=== PATIENT | male | born 1980 | race Caucasian/White ===

== ENCOUNTER 2023-01-20 22:59 | Emergency (ER) | payer BC, SELFPAY ==
[2023-01-20 23:11] VITALS: BP 137/100; PULSE 78; RESP 18; TEMP 36.7; O2SAT 99; BMI 25.1
[2023-01-20 23:45] VITALS: RESP 16; O2SAT 99
[2023-01-21] MEDS: BUPIVACAINE 0.25% 30 ML 5 ML INJECTION (00:20)
--- NOTE | 2023-01-21 00:48 | ED_ITS ---
HPI - General Adult General Chief complaint: Unspecified Complaint, Adult Stated complaint: has some hemorrhoids that flared up Time Seen by Provider: 01/20/23 23:10 History of Present Illness HPI narrative: 42-year-old man presenting to the emergency department with complaint of persist ent anal area pain that began after supper this evening after a bowel movement. Has not been able to get it settle down with Sitz bath, lidocaine containing preparation Hdelilah. He received these treatments after being sent in clinic a week ago for what apparently were some thrombosed hemorrhoids that began about 2 weeks ago. He was referred to Colorectal surgery and has that appointment in about a week. At this point is relatively desperate for some pain relief. He does admit feeling a large swelling in the area that was not there prior to this latest bowel movement. Related Data Previous Rx's Medication Instructions Recorded hydrocortisone acetate 25 mg 25 mg LA QHS #12 ea 01/06/23 rectal suppository (Anusol-HC) Allergies Allergy/AdvReac Type Severity Reaction Status Date / Time No Known Drug Allergies Allergy Verified 01/20/23 23:14 Review of Systems Status of ROS: Reports: 6 or more systems reviewed and unremarkable except as noted in History and below [facility] Medical History History of hemorrhoids ?Z87.19 - Personal history of other diseases of the digestive system (ICD-10) Surgical History (Updated 01/21/23 @ 00:58 by Bryson Alfred RN) History of oral surgery ?Z98.890 - Other specified postprocedural states (ICD-10) Social History Smoking Status: Never smoker Second hand tobacco smoke exposure: No Non-prescribed substance use: denies use Exam Narrative: Exam Narrative: Pleasant. Well built. NAD. Skin is warm and dry. Breathing easily. Clearly uncomfortable with transitions. Examination of the anal area involving the majority of the left side anal tissue is swelling little more than 2 cm x 1-1/2. Does contain some purple areas within consistent with thrombosed hemorrhoid. Exquisitely tender to palpation. At about 5 o'clock position is no other older thrombosed not inflamed tissue with some deeper more subtle hemorrhoidal tissue along the right side as well. Const: Vital Signs, click to edit/add: Vital Signs - 24 hr 01/20/23 23:11 01/20/23 23:45 01/21/23 00:58 Temperature 98.0 F 98.4 F Pulse Rate [Right Pulse Oximeter] 78 74 Respiratory Rate 18 18 Respiratory Rate [ Rectum] 16 Blood Pressure [Le ft Upper Arm] 137/100 H 122/74 Pulse Oximetry 99 99 Oxygen Delivery Me thod Room Air Room Air 01/21/23 00:50 Temperature 98.4 F Pulse Rate [Right Pulse Oximeter] 74 Respiratory Rate 18 Respiratory Rate [ Rectum] Blood Pressure [Le ft Upper Arm] 122/74 Pulse Oximetry Oxygen Delivery Me thod Course Vital Signs Vital signs: Initial Vital Signs Temperature 98.0 F 01/20/23 23:11 Temperature Source Temporal Artery Scan 01/20/23 23:11 Pulse Rate 78 01/20/23 23:11 Respiratory Rate 18 01/20/23 23:11 Blood Pressure 137/100 H 01/20/23 23:11 Blood Pressure Mean 112 H 01/20/23 23:11 Blood Pressure Position Sitting 01/20/23 23:11 Pulse Oximetry 99 01/20/23 23:11 Oxygen Delivery Method Room Air 01/20/23 23:11 Vital Signs Temperature 98.0 F 01/20/23 23:11 Pulse Rate 78 01/20/23 23:11 Respiratory Rate 18 01/20/23 23:11 Blood Pressure 137/100 H 01/20/23 23:11 Pulse Oximetry 99 01/20/23 23:11 Oxygen Delivery Method Room Air 01/20/23 23:11 Temperature 98.4 F 01/21/23 00:58 Pulse Rate 74 01/21/23 00:58 Respiratory Rate 18 01/21/23 00:58 Blood Pressure 122/74 01/21/23 00:58 Pulse Oximetry 99 01/21/23 00:58 Oxygen Delivery Method Room Air 01/21/23 00:58 Medical Decision Making MDM Narrative Medical decision making narrative: I discussed options with Mr. Schofield. He is reluctant to take opiates as they have rather constipated him in the past. He has felt improved in the past with excision of hemorrhoid and would like to proceed with that. I anesthetize in fan the left side anal area with lidocaine with epinephrine. Followed later with Marcaine. Ultimately do achieve very good anesthesia. After initially attempting excision myself in 3 locations over most purpled and apparently thrombosed tissue assisted further with Nursing and particularly ce ntrally in this most thrombosed area on the left am able to excise a number of 0.5 cm clots. Tissue in general is less swollen and retreats more into the anal tissue. 4 x 4 gauze is placed. See patient discharge plan Discharge Plan Discharge Clinical Impression: External hemorrhoid, thrombosed Patient Disposition: Home, Self-Care Condition: Improved Additional Instructions: Continue with daily to twice daily Sitz baths over the next few days. Do your best to keep stool soft with lots of hydration fiber intake. Maybe supplementing with MiraLax equivalent. Consider getting a bidet for cleaning. They are quite affordable now and you can just replace the lid of your toilet. Can continue with lidocaine creams, witch Nancy various formulations, and over this next week at least steroid cream as well. Presumably the steroid/hydrocortisone is combined with some lidocaine. Can take up to 800 mg of ibuprofen per dose or up to 1000 mg of acetaminophen per dose. Alternative to the ibuprofen might be up to 500 mg naproxen 2 times daily. Follow-up next week with colorectal as planned. Prescriptions: No Action hydrocortisone acetate [Anusol-HC] 25 mg suppository 25 mg LA QHS Qty: 12 0RF Follow Up/Referrals: Provider,Not a Local [Primary Care Provider] - Stand Alone Forms: LEP[facility] Info Instructions
[2023-01-21 00:50] VITALS: BP 122/74; PULSE 74; RESP 18; TEMP 36.9
[2023-01-21 00:58] VITALS: BP 122/74; PULSE 74; RESP 18; TEMP 36.9; O2SAT 99
== END 2023-01-21 00:50 | disposition home or self-care (01) ==
PROVIDERS: Emergency Provider Family Medicine
DX: K64.5 Perianal venous thrombosis (principal)
CPT/HCPCS: 46083; 99284; J3490